=== PATIENT | male | born 1960 | race Caucasian/White ===

== ENCOUNTER → 2017-12-10 | Outpatient (CLI) | payer BC ==
[~2017-12-10] MED LIST: BUDE10.2 IH; RT-ALBUINH IH
--- NOTE | 2017-12-10 18:40 | Diagnostic Imaging Report ---
INDICATION: Shortness of breath. EXAMINATION: PA and lateral views of the chest were obtained at 3:21 p.m. FINDINGS: Heart is normal in size. Mediastinal silhouette is unremarkable. There is an ill-defined density in the left perihilar region which may represent infiltrate or nodule. Recommend chest CT for further characterization. The right lung is clear. There is no pneumothorax or pleural fluid. IMPRESSION: Indeterminate density in left perihilar region which may represent infiltrate or nodule. Chest CT recommended for further evaluation. There is no other abnormal finding. Dictated by: Dictated on workstation # [id number]
== END ==
LOC: RAD 14:40
PROVIDERS: ATTEND Nurse Practitioner Family
DX: J98.4 Other disorders of lung (principal); R06.02 Shortness of breath
CPT/HCPCS: 71046

== ENCOUNTER → 2017-12-15 | Outpatient (CLI) | payer BC ==
--- NOTE | 2017-12-15 12:52 | Diagnostic Imaging Report ---
INDICATION: Left lung density. TECHNIQUE: Serum blood glucose level at the time of injection was 113 mg/dL. Patient was administered 13.7 mCi F-18 FDG intravenously, administered to the right antecubital location, and PET imaging was performed from the top of the skull to mid thighs. Noncontrast CT was also performed for attenuation correction and anatomic correlation. COMPARISON: No prior PET study or CT study is available for comparison. Comparison is made with a chest radiograph from 12/10/2017. FINDINGS: There is physiologic activity throughout the brain. No abnormal hypermetabolism in the soft tissues of the neck is identified. Mediastinum and deya are unremarkable. There is a parenchymal opacity in the left upper lobe corresponding with the chest x-ray abnormality. This does have low-level metabolism with SUV max of approximately 3.4. It is somewhat linear in configuration and is most suggestive of an area of infiltrate. No other pulmonary parenchymal abnormalities are seen. There does appear to be a left pleural effusion. The abdomen demonstrates physiologic activity in the GI and tracts. No abnormal hypermetabolism is seen. IMPRESSION: Small left pleural effusion. There is an area of somewhat linear opacity in the left upper lobe corresponding with the chest radiographic abnormality. This does show some low-level metabolism and is likely on an infectious/inflammatory basis. However, followup conventional chest CT with contrast after course of therapy is recommended to confirm clearing. Dictated by: Dictated on workstation # [id number]
== END ==
LOC: RAD 10:09
PROVIDERS: ATTEND Nurse Practitioner Family
DX: J90 Pleural effusion, not elsewhere classified (principal); R91.1 Solitary pulmonary nodule

== ENCOUNTER 2017-12-16 11:30 | Outpatient (CLI) | payer BC ==
[~2017-12-16] VITALS: Ht 172.7 cm; Wt 90.7 kg
[2017-12-16] MEDS ORDERED: BUDE10.2 IH (11:47)
[2017-12-16] MEDS ORDERED: RT-ALBUINH IH (11:47)
== END 2017-12-16 11:51 | disposition home or self-care (01) ==
LOC: PREOP 11:30
PROVIDERS: ATTEND Internal Medicine Critical Care Medicine
DX: Z01.818 Encounter for other preprocedural examination (principal)

== ENCOUNTER 2017-12-17 09:42 | Day surgery (SDC) | payer BC ==
[~2017-12-17] VITALS: Ht 172.7 cm; Wt 90.7 kg
[2017-12-17] MEDS ORDERED: LIDOCAINE PF 1% 5 ML SYRINGE (ANLIKER/BAILEY ONLY) INJ ONE (09:43)
[2017-12-17 09:55] VITALS: BP 139/88
[2017-12-17] MEDS ORDERED: LACTATED RINGERS 1,000 ML IV PRN (10:00)
[2017-12-17] MEDS ORDERED: LACTATED RINGERS 1,000 ML IV ONE (10:02)
[2017-12-17] MEDS ORDERED: fentaNYL INJECTION 100 MCG/2 ML AMP ONE (12:12)
[2017-12-17] MEDS ORDERED: PROPOFOL INJECTION 50 ML IV ONE (12:12)
[2017-12-17] MEDS ORDERED: LIDOCAINE PF 2% 2 ML (XYLOCAINE) VIAL ONE (12:12)
[2017-12-17] MEDS ORDERED: MIDAZOLAM 2 MG/2 ML (VERSED) VIAL ONE (12:13)
[2017-12-17] MEDS ORDERED: ROCURONIUM 10 MG/ML 5 ML SYRINGE IV ONE (12:13)
[2017-12-17] MEDS ORDERED: proPOfol 200 MG/20 ML (DIPRIVAN) VIAL IV ONE (12:16)
[2017-12-17] MEDS ORDERED: GLYCOPYRROLATE 0.2 MG/ML (ROBINUL) 2 ML VIAL ONE (12:51)
[2017-12-17] MEDS ORDERED: NEOSTIGMINE 1 MG/ML 5 ML SYRINGE ONE (12:52)
[2017-12-17 14:10] VITALS: BP 137/74
--- NOTE | 2017-12-17 14:17 | Diagnostic Imaging Report ---
Clinical indication: Patient post bronchoscopy and EBUS. Exam: Portable chest x-ray upright view. Comparisons: Chest x-ray dated 12/10/2017. Findings: There is interval development of a small amount of amorphous increased density in the left perihilar region which is near the area of increased density on the prior x-ray. This may represent post procedure parenchymal hemorrhage. Superimposed other infiltrate and/or atelectasis may also be present. There is no pneumothorax. There is no pleural effusion. Pulmonary vasculature and cardiac silhouette are within normal limits. Bones show no significant interval abnormality. Impression: 1: There is interval development of a small amount of amorphous increased density in the left perihilar region which is in the region of the previously seen increased density. This may represent post procedure parenchymal hemorrhage. Atelectasis and/or other infiltrate may also be considered. 2: There is no pneumothorax or pleural effusion. Dictated by: Dictated on workstation # [id number]
--- NOTE | 2017-12-17 14:30 | Anesthesia-General Post-Op ---
General Patient Condition Mental Status/LOC: Same as Preop Cardiovascular: Satisfactory Nausea/Vomiting: Absent Respiratory: Satisfactory Pain: Controlled Complications: Absent Post Op Complications Complications None Follow Up Care/Instructions Patient Instructions None needed. Anesthesia/Patient Condition Patient Condition Patient is doing well, no complaints, stable vital signs, no apparent adverse anesthesia problems. No complications reported per nursing. MAIN ROSS CRNA Dec 17, 2017 14:30
[2017-12-17 14:32] VITALS: BP 130/79
--- NOTE | 2017-12-17 14:34 | Diagnostic Imaging Report ---
Fluoroscopy. Indication: Lung density. Fluoroscopic assistance was provided for Dr. Fish during his bronchoscopy procedure. 61 seconds of fluoroscopy time was utilized. Two spot films of the left thorax were received from the OR. Impression: Fluoroscopic assistance was provided for Dr. Fish. Dictated by: Dictated on workstation # [id number]
[2017-12-17 14:40] VITALS: BP 130/79
--- NOTE | 2017-12-17 15:44 | Pulmonary Procedures ---
Pulmonary Procedures Date of Procedure Date of Service: Dec 17, 2017 Bronch Bronchoscopy with fluoroscopy, MELL washing, BAL, and transbronchial brush. EBUS was used to access for enlarged mediastinal lymphnodes. Preop DX: lung mass PostOP DX: same no enlarged lymph nodes. Complications: None Pt was sedated per anesthesia. Bronchoscopy was advanced through the ET tube and an anatomical undertaken down to the segmental bronchi bilaterally. No endobronchial lesions noted. fluoroscopy was used to obtain MELL washing, BAL, and transbronchial brush. EBUS was then advanced through ET tube and the mediastinum was US. No enlarged lymph nodes were seen. No transbronchial needle aspirations done. Pt tolerated procedure well. No complications noted. ANDREWS HEMPHILL DO Dec 17, 2017 15:44
== END 2017-12-17 14:40 | disposition home or self-care (01) ==
LOC: ENDO 09:42
PROVIDERS: ATTEND Internal Medicine Critical Care Medicine
DX: R91.8 Other nonspecific abnormal finding of lung field (principal); J44.9 Chronic obstructive pulmonary disease, unspecified; J45.909 Unspecified asthma, uncomplicated; K21.9 Gastro-esophageal reflux disease without esophagitis; F17.210 Nicotine dependence, cigarettes, uncomplicated; Z79.899 Other long term (current) drug therapy
CPT/HCPCS: 71045; 87070; 87101; 87116; 87205

== ENCOUNTER → 2017-12-21 | Outpatient (CLI) | payer BC ==
[~2017-12-21] MED LIST changes: +RT-ALBUTEROL SULF 2.5 MG/3 ML PRE-MIX VIAL INH ONE; +RT-ALBUTEROL SULF 2.5 MG/3 ML PRE-MIX VIAL ONE
== END ==
LOC: RT 15:13
PROVIDERS: ATTEND Nurse Practitioner Family
DX: R06.02 Shortness of breath (principal); J44.9 Chronic obstructive pulmonary disease, unspecified
CPT/HCPCS: 94060; 94726; 94729

== ENCOUNTER → 2018-02-17 | Outpatient (CLI) | payer BC ==
[~2018-02-17] MED LIST changes: +RECEIVED CONTRAST (Hold Metformin) IV SCH; -RT-ALBUTEROL SULF 2.5 MG/3 ML PRE-MIX VIAL INH ONE; -RT-ALBUTEROL SULF 2.5 MG/3 ML PRE-MIX VIAL ONE
[2018-02-17 12:33] LABS: BUN/CREATININE RATIO 17; CREATININE SERUM 0.86 MG/DL (0.60-1.30); GFR ESTIMATED > 60
[2018-02-17] MEDS: IOHEXOL 350 MG/ML 100 ML (OMNIPAQUE 350) VIAL IV ONE (13:28)
[2018-02-17] MEDS: NS 250 ML (IVPB) BAG IV ONE (13:29)
--- NOTE | 2018-02-17 22:57 | Diagnostic Imaging Report ---
PROCEDURE: CT chest with contrast only. TECHNIQUE: Multiple contiguous axial images were obtained through the chest after administration of intravenous contrast. DATE: February 17, 2018. COMPARISON: Chest radiograph, December 17, 2017. PET CT, December 15, 2017. INDICATION: 58-year-old male, follow left lung consolidation. History of pulmonary nodule, COPD, and chronic bronchitis. PROCEDURE: Axial noncontrasted CT images of the chest. Noncontrasted limits the evaluation of the mediastinum and vascular structures. FINDINGS: There is a pleurally based right upper lobe pulmonary nodule on axial image 20 which measures 8 mm in size. This appears more focal compared to prior PET/CT of December 15, 2017. There are mild linear opacities in the left upper lobe likely reflecting mild scarring and/or atelectasis. The overall extent of opacification in the left upper lobe is significantly decreased since the December 15, 2017. CT. There is a semisolid 4 mm left upper lobe pulmonary nodule on axial image 22 which does not appear present on prior CT. There is no current pleural effusion. There is no pneumothorax. The central airways appear patent. The heart is not enlarged. There is no pericardial effusion. There is no identified central pulmonary embolus. There is no identified abnormally enlarged mediastinal, hilar or axillary lymph node which meets CT size criteria for adenopathy. The visualized portions of the upper abdomen are unremarkable in appearance. There is mild to moderate dilation of the esophagus without CT apparent wall thickening of the esophagus. There is no identified acute bony abnormality. IMPRESSION: 1. 8 mm pleurally based right upper lobe pulmonary nodule which appears more focal since on prior PET/CT of December 15, 2017. Newly identified 4 mm semisolid left upper lobe pulmonary nodule. Recommend followup CT chest in three months to assess for stability. 2. Minimal atelectasis or scarring in the left upper lobe with interval decrease in extent of alveolar consolidation seen on prior PET/CT at this location. 3. No current pleural effusion. 4. Mild to moderate dilation of the esophagus without CT apparent wall thickening of the esophagus. Dictated by: Dictated on workstation # [id number]
== END ==
LOC: RAD 11:56
PROVIDERS: ATTEND Nurse Practitioner Family
DX: J44.9 Chronic obstructive pulmonary disease, unspecified (principal); R91.8 Other nonspecific abnormal finding of lung field; K22.8 Other specified diseases of esophagus; J18.1 Lobar pneumonia, unspecified organism; Z72.0 Tobacco use
CPT/HCPCS: 36415; 71260; 82565; 84520

== ENCOUNTER → 2018-05-03 | Outpatient (CLI) | payer BC ==
[~2018-05-03] MED LIST changes: -RECEIVED CONTRAST (Hold Metformin) IV SCH
--- NOTE | 2018-05-03 13:47 | Diagnostic Imaging Report ---
PROCEDURE: CT chest without contrast. TECHNIQUE: Multiple contiguous axial images were obtained through the chest without the use of intravenous contrast. INDICATION: Lung nodules. Patient also complains of shortness of air and is a tobacco user. Correlation is made with prior CT chest from 02/17/2018. No axillary lymphadenopathy is seen. No mediastinal or hilar lymphadenopathy is detected. No pericardial or pleural fluid is identified. A slightly irregular density noted adjacent to the major fissure the right upper lobe posteriorly is again noted measuring 7 mm compared with 8 mm on prior. There is some minimal scarring or atelectasis left upper lobe. Previously noted semisolid nodule left upper lobe is no longer appreciated. Previously noted esophageal dilatation is similar to prior exam. Upper abdomen does show a tiny nonobstructing calculus in the upper pole of the left kidney. IMPRESSION: 1. Stable nodule right upper lobe adjacent to major fissure. Previously noted semisolid nodule in left upper lobe is no longer appreciated. No new abnormality is detected. Dictated by: Dictated on workstation # [id number]
== END ==
LOC: RAD 12:55
PROVIDERS: ATTEND Nurse Practitioner Family
DX: J44.9 Chronic obstructive pulmonary disease, unspecified (principal); R91.8 Other nonspecific abnormal finding of lung field; G47.50 Parasomnia, unspecified; Z72.0 Tobacco use
CPT/HCPCS: 71250

== ENCOUNTER 2018-12-08 14:12 | Emergency (ER) | payer BC ==
[~2018-12-08] VITALS: Ht 172.7 cm; Wt 92.5 kg
[2018-12-08] MEDS ORDERED: KETOROLAC 60 MG/2 ML VIAL IM ONE (15:15)
--- NOTE | 2018-12-08 15:17 | ED General ---
General Chief Complaint: Abdominal/GI Problems Stated Complaint: LT ABD PAIN History of Present Illness Date Seen by Provider: Dec 08, 2018 Time Seen by Provider: 15:00 Initial Comments The patient is a very pleasant 58-year-old male presents for evaluation of left lower lateral rib pain. He states that he is currently remodeling a bathroom and has been doing a lot of physical labor. He does not remember a specific injury to his chest wall. He does report some shortness of breath and some exquisite pain when palpating his left lower ribs laterally. He does have a history of COPD. He is alert and oriented 4, calm, and appears to be in no distress this time. He states that he has excruciating pain when he coughs and that it is painful to touch, but denies any pain when he does a sit up type exercise. He denies fevers or chills, chest pain, nausea or vomiting, diarrhea, back or flank pain, or syncope. Timing/Duration: 1-2 Days Severity: Moderate Modifying Factors: improves with Other (coughing and palpation make it worse) Associated Systoms: Denies Symptoms, Shortness of Air Allergies and Home Medications Allergies Coded Allergies: codeine (Verified Allergy, Unknown, NAUSEA, 12/16/17) oxycodone (Verified Allergy, Unknown, NAUSEA, 12/16/17) Home Medications Albuterol Sulfate 1 Puff Puff, 2 PUFF IH QID PRN for SHORTNESS OF BREATH, (Reported) 1 PUFF = 90 MCG Budesonide/Formoterol Fumarate 10.2 Gm Hfa.aer.ad, 2 PUFF IH BID, (Reported) Patient Home Medication List Home Medication List Reviewed: Yes Review of Systems Review of Systems Constitutional: no symptoms reported EENTM: no symptoms reported Respiratory: short of breath, other (pain with coughing) Gastrointestinal: no symptoms reported Genitourinary: no symptoms reported Musculoskeletal: no symptoms reported Skin: no symptoms reported Psychiatric/Neurological: No Symptoms Reported Hematologic/Lymphatic: No Symptoms Reported All Other Systems Reviewed Negative Unless Noted: Yes Past Kjyjvvh-Jwluby-Scfakl Hx Past Med/Social Hx: Reviewed Nursing Past Med/Soc Hx Patient Social History Type Used: Cigarettes Recent Hopitalizations: No Seasonal Allergies Seasonal Allergies: No Past Medical History Asthma, COPD Physical Exam Vital Signs Capillary Refill : Height, Weight, BMI Height: 5'8.00" Weight: 200lbs. 0.0oz. [id number]; 30.4 BMI Method: General Appearance: No Apparent Distress, WD/WN HEENT: PERRL/EOMI, TMs Normal, Normal ENT Inspection, Pharynx Normal Neck: Full Range of Motion, Non Tender Respiratory: Chest Non Tender, Lungs Clear, Normal Breath Sounds, No Accessory Muscle Use, No Respiratory Distress, Other (point tenderness over left lower anteriolateral ribs) Cardiovascular: Regular Rate, Rhythm, No Edema, No JVD Gastrointestinal: Normal Bowel Sounds Back: Normal Inspection, No CVA Tenderness, No Vertebral Tenderness Extremity: Normal Capillary Refill, Normal Range of Motion, No Calf Tenderness, No Pedal Edema Neurologic/Psychiatric: Alert, Oriented x3, No Motor/Sensory Deficits, Normal Mood/Affect Skin: Normal Color, Warm/Dry Progress/Results/Core Measures Suspected Sepsis SIRS Temperature: Pulse: Respiratory Rate: Blood Pressure / Mean: Results/Orders My Orders Orders - ALCIDES WINTERS DO Ribs 2-3 View Left (12/08/18 15:08) Ketorolac Injection (Toradol Injection) (12/08/18 15:15) Vital Signs/I&O Capillary Refill : Progress Note : Progress Note @1544 - Pt updated on imaging results which are unremarkable. The patient is clinical evidence to suggest a nondisplaced rib fracture or less likely a chest wall strain. He'll go home with a prescription for [place]. Advised the patient to follow-up with his PCP in the next 1-2 days and to return to the emergency Department immediately for any new or worsening symptoms. The patient expresses verbal understanding and agreement with the plan and is stable for discharge home. Diagnostic Imaging Diagonstic Imaging: Xray [facility] [place] [place] NAME: KATIE DONATO [facility] REC#: [id number] PT STATUS: REG ER : 1960 PHYSICIAN: ALCIDES WINTERS DO ADMIT DATE: 12/08/18/ER FS Draft Date of Exam:12/08/18 RIBS 2-3 VIEW LEFT CLINICAL INDICATION: Patient with left middle rib pain, cough. EXAM: X-ray of the left ribs, 4 views. COMPARISON: Portable chest x-ray dated 12/17/2017. FINDINGS AND IMPRESSION: 1. The left ribs show no acute fracture or dislocation. There is no significant bone or joint abnormality. 2. There are degenerative spurs involving the thoracic spine. 3. The visualized portions of the chest are unremarkable. Dictated on workstation # [id number] Dict: 12/08/18 1530 Trans: 12/08/18 1538 [id number] Interpreted by: BASILIO GRANT MD Electronically signed by: Departure Impression Primary Impression: Left rib fracture Disposition: HOME, SELF-CARE Condition: Stable Departure-Patient Inst. Decision time for Depature: 15:46 Referrals: JACQUE DICKINSON DO (PCP/Family) Primary Care Physician Patient Instructions: Rib Fractures in Adults Add. Discharge Instructions: Take the prescribed pain medication as directed, as needed. Follow-up with your doctor in the next 1-2 days. Return to the Emergency Department immediately for new or worsening symptoms. Scripts Hydrocodone/Acetaminophen ([place] 7.5-325 Tablet) 1 Each Tablet 1 TAB PO Q4H for PAIN-MODERATE MDD 6 TABS for 5 Days, #15 TAB Prov: ALCIDES WINTERS DO 12/08/18 Work/School Note: Work Release Form Date Seen in the Emergency Department: Dec 08, 2018 Return to Work: Dec 10, 2018 Restrictions: Follow Up With [facility] ALCIDES WINTERS DO Dec 08, 2018 15:17
--- NOTE | 2018-12-08 15:38 | Diagnostic Imaging Report ---
CLINICAL INDICATION: Patient with left middle rib pain, cough. EXAM: X-ray of the left ribs, 4 views. COMPARISON: Portable chest x-ray dated 12/17/2017. FINDINGS AND IMPRESSION: 1. The left ribs show no acute fracture or dislocation. There is no significant bone or joint abnormality. 2. There are degenerative spurs involving the thoracic spine. 3. The visualized portions of the chest are unremarkable. Dictated by: Dictated on workstation # [id number]
[2018-12-08] MEDS ORDERED: HYDR-4227 PO (15:54)
[2018-12-08 16:06] VITALS: BP 155/83
== END 2018-12-08 16:06 | disposition home or self-care (01) ==
LOC: EDUNIT# 14:12 → ER FS 14:13
DX: S22.32XA Fracture of one rib, left side, initial encounter for closed fracture (principal); J44.9 Chronic obstructive pulmonary disease, unspecified; Z88.5 Allergy status to narcotic agent; X50.1XXA Overexertion from prolonged static or awkward postures, initial encounter
CPT/HCPCS: 71100; 96372

== ENCOUNTER → 2019-06-16 | Outpatient (CLI) | payer BC, OTHER ==
[~2019-06-16] MED LIST changes: +HYDR-4227 PO
--- NOTE | 2019-06-16 14:54 | Diagnostic Imaging Report ---
PROCEDURE: MR imaging of the brain without contrast. TECHNIQUE: Multiplanar, multisequence MR imaging of the brain was performed without contrast. INDICATION: Dizziness. COMPARISON: PET/CT on 12/15/2017. FINDINGS: Numerous dilated and tortuous veins are visualized in the left lateral frontal lobe extending to the margin of the body of the left lateral ventricle. No evidence of acute hemorrhage. No acute ischemia. The ventricles, cortical sulci, and basilar cisterns are symmetric and unremarkable. The sellar and suprasellar regions have a normal appearance. The brainstem and posterior fossa are unremarkable. The paranasal sinuses and mastoid air cells demonstrate normal signal characteristics. The globes and orbits are symmetric and unremarkable. The scalp and calvarium have a normal appearance. IMPRESSION: 1. 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 Recommend further evaluation with CTA of the head and catheter cerebral angiogram. 2. No acute ischemia or hemorrhage. Report given to nurse (Paola) & faxed at 2:54 p.m. 06/16/2019/cb Dictated by: Dictated on workstation # [id number]
== END ==
LOC: RAD 14:06
PROVIDERS: ATTEND Family Medicine
DX: R42 Dizziness and giddiness (principal); M54.5 Low back pain; F17.299 Nicotine dependence, other tobacco product, with unspecified nicotine-induced disorders; J98.4 Other disorders of lung; E66.3 Overweight; F51.01 Primary insomnia
CPT/HCPCS: 70551

== ENCOUNTER → 2019-08-23 | Outpatient (CLI) | payer OTHER | LOC: LABNPT 09:02 | DX: Z11.59 Encounter for screening for other viral diseases (principal) | CPT/HCPCS: 87635 ==

== ENCOUNTER → 2020-03-14 | Outpatient (CLI) | payer OTHER ==
[2020-03-14 15:30] LABS: BASOPHILS # (AUTO) 0.1 10^3/uL (0.0-0.1); BASOPHILS % (AUTO) 1 % (0-10); EOSINOPHILS # (AUTO) 0.2 10^3/uL (0.0-0.3); EOSINOPHILS % (AUTO) 3 % (0-10); HEMATOCRIT 44 % (40-54); HEMOGLOBIN 13.5 g/dL (13.3-17.7); LYMPHOCYTES # (AUTO) 1.8 10^3/uL (1.0-4.0); LYMPHOCYTES % (AUTO) 25 % (12-44); MEAN CORPUSCULAR HEMOGLOBIN 29 pg (25-34); MEAN CORPUSCULAR HGB CONC 31 g/dL (32-36); MEAN CORPUSCULAR VOLUME 95 fL (80-99); MEAN PLATELET VOLUME 9.6 fL (9.0-12.2); MONOCYTES # (AUTO) 0.7 10^3/uL (0.0-1.0); MONOCYTES % (AUTO) 10 % (0-12); NEUTROPHILS # (AUTO) 4.3 10^3/uL (1.8-7.8); NEUTROPHILS % (AUTO) 60 % (42-75); PLATELET COUNT 240 10^3/uL (130-400); WHITE BLOOD COUNT 7.1 10^3/uL (4.3-11.0)
[2020-03-14 15:37] LABS: CHLORIDE 104 MMOL/L (98-107); POTASSIUM 4.2 MMOL/L (3.6-5.0); SODIUM 139 MMOL/L (135-145)
[2020-03-14 15:38] LABS: CALCIUM 8.6 MG/DL (8.5-10.1)
[2020-03-14 15:39] LABS: GLUCOSE 88 MG/DL (70-105)
[2020-03-14 15:40] LABS: TOTAL PROTEIN 6.6 GM/DL (6.4-8.2)
[2020-03-14 15:41] LABS: BILIRUBIN,TOTAL 0.4 MG/DL (0.1-1.0); CARBON DIOXIDE 28 MMOL/L (21-32)
[2020-03-14 15:43] LABS: ALKALINE PHOSPHATASE 87 U/L (40-136); CREATININE SERUM 1.11 MG/DL (0.60-1.30); GFR ESTIMATED > 60
[2020-03-14 15:44] LABS: BUN/CREATININE RATIO 16
[2020-03-14 15:46] LABS: ALANINE AMINOTRANSFERASE 14 U/L (0-55)
[2020-03-14 15:51] LABS: CREATINE KINASE MB 1.5 NG/ML (<6.6)
== END ==
LOC: LABNPT 15:19
PROVIDERS: ATTEND Family Medicine
DX: R07.9 Chest pain, unspecified (principal)
CPT/HCPCS: 80053; 82553; 84484; 85025

== ENCOUNTER → 2020-04-17 | Outpatient (CLI) | payer BC, OTHER ==
[~2020-04-17] VITALS: Ht 172 cm; Wt 89.0 kg
[~2020-04-17] MED LIST changes: +REGADENOSON 0.4 MG/5 ML SYR (LEXISCAN) IV ONE
[2020-04-17] MEDS: CATHETER FLUSH 10 ML SYR IV PRN ×2 (11:36→13:01)
[2020-04-17 12:55] VITALS: BP 144/78
== END ==
LOC: CARD 10:47
PROVIDERS: ATTEND Nurse Practitioner Family
DX: I34.0 Nonrheumatic mitral (valve) insufficiency (principal)
CPT/HCPCS: 78452; 93017; 93306; A9502

== ENCOUNTER → 2020-04-30 | Outpatient (CLI) | payer BC ==
[~2020-04-30] MED LIST changes: -REGADENOSON 0.4 MG/5 ML SYR (LEXISCAN) IV ONE
--- NOTE | 2020-04-30 12:40 | Diagnostic Imaging Report ---
INDICATION: Chest pain. COMPARISON: CT dated 05/03/2018 FINDINGS: Multiple frontal and lateral radiograph views of the chest were obtained. Cardiac silhouette and pulmonary vasculature are within normal limits. Evaluation of lung nunez suggest 6 mm micronodular opacity within the lateral right lung base. Otherwise, lungs are clear. There is no large effusion or pneumothorax. Osseous structures show no gross acute abnormalities. IMPRESSION: 1. No evidence of failure or focal infiltrate. 2. 6 mm micronodular opacity within the lateral right lung base. Further evaluation with dedicated CT of the chest is recommended. Dictated by: Dictated on workstation # [id number]
== END ==
LOC: RAD FS 11:51
PROVIDERS: ATTEND Family Medicine
DX: J98.4 Other disorders of lung (principal); R91.8 Other nonspecific abnormal finding of lung field; Q28.2 Arteriovenous malformation of cerebral vessels; M54.5 Low back pain; F51.01 Primary insomnia; F17.299 Nicotine dependence, other tobacco product, with unspecified nicotine-induced disorders
CPT/HCPCS: 71047

== ENCOUNTER → 2020-06-06 | Outpatient (CLI) | payer BC ==
--- NOTE | 2020-06-06 11:38 | Diagnostic Imaging Report ---
INDICATION: CONTUSION OF RIGHT FRONT WALL OF THORAX AND RUQ OF ABDOMEN,. TECHNIQUE: Two view chest 9:55 AM CORRELATION STUDY: 04/30/2020 FINDINGS: The heart size, mediastinal configuration and pulmonary vasculature are within normal limits. There is presence of a pleural effusion or pleural thickening at the right lung base. Fluid collection appearing more pronounced posteriorly. Some of this may be partially loculated. Mild right basilar lung volume loss. No appreciable pneumothorax. Left lung clear. Visualized osseous structures are unremarkable. IMPRESSION: 1. Small right pleural effusion versus pleural thickening which may be somewhat loculated. Slightly more prominent posteriorly. Etiology significance indeterminate. If further assessment desired, CT imaging chest would be recommended. Dictated by: Dictated on workstation # [id number]
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
== END ==
LOC: RAD FS 09:45
PROVIDERS: ATTEND Family Medicine
DX: S20.211A Contusion of right front wall of thorax, initial encounter (principal); W28.XXXA Contact with powered lawn mower, initial encounter
CPT/HCPCS: 71046; 71100; 74019

== ENCOUNTER → 2020-07-06 | Outpatient (CLI) | payer BC ==
--- NOTE | 2020-07-06 17:11 | Diagnostic Imaging Report ---
EXAMINATION: CT Chest without contrast. TECHNIQUE: Multiple contiguous axial images were obtained through the chest without the use of intravenous contrast. All CT scans use one or more of the following dose optimizing techniques: automated exposure control, MA and/or KvP adjustment based on a patient size and exam type, or iterative reconstruction. HISTORY: Wheezing. Left-sided chest pain. Received first COVID shot one week ago. Shortness of breath. History of smoking. COMPARISON: CT chest on 05/03/2018. FINDINGS: The heart size is within normal limits. No pericardial effusion is present. Mildly prominent mediastinal and hilar lymph nodes are visualized, the largest in the AP window measuring 0.9 cm in short axis. Ingested contents are seen throughout the esophagus. A spiculated soft tissue mass is seen in the lingula measuring 4.6 x 3.9 cm and 4.1 cm craniocaudal. There is a small amount of surrounding hazy opacities. This is new since the prior exam from 2019. Stable nodule in the right upper lobe adjacent to the fissure measuring 0.7 cm. No central endobronchial obstructing lesions are identified. There is no pleural effusion or pneumothorax. The osseous structures demonstrate no acute abnormalities. Limited views of the upper abdominal structures demonstrate no acute abnormalities. Both adrenal glands are unremarkable. IMPRESSION: 1. Interval development of a soft tissue mass in the lingula. Given the patient's history of smoking, this is concerning for primary lung malignancy. Metastatic disease can also have this appearance. Recommend further evaluation with percutaneous biopsy. 2. Mildly prominent mediastinal lymph nodes. These are nonspecific, although given the lung mass, there is concern for metastatic disease. Recommend further characterization with PET/CT. 3. Ingested contents throughout the esophagus, which may represent [id number] gastroesophageal reflux. Recommend correlation with patient history. 4. Stable nodule in the right upper lobe adjacent to the fissure measuring 0.7 cm. Dictated by: Dictated on workstation # [id number]
== END ==
LOC: RAD FS 15:19
PROVIDERS: ATTEND Family Medicine
DX: I89.0 Lymphedema, not elsewhere classified (principal); K21.9 Gastro-esophageal reflux disease without esophagitis; R91.8 Other nonspecific abnormal finding of lung field; R91.1 Solitary pulmonary nodule; Z87.891 Personal history of nicotine dependence
CPT/HCPCS: 71250

== ENCOUNTER 2020-07-18 08:02 | Outpatient (CLI) | payer BC ==
[~2020-07-18] VITALS: Ht 172.7 cm; Wt 89.0 kg
[2020-07-18] VITALS (13 sets, daily range): BP systolic 100–138; BP diastolic 57–75
[2020-07-18] MEDS ORDERED: NS IV 1000 ML 1,000 ML IV STA (08:46)
[2020-07-18 08:53] LABS: HEMOGLOBIN 13.2 g/dL (13.3-17.7); MEAN PLATELET VOLUME 9.7 fL (9.0-12.2); WHITE BLOOD COUNT 8.4 10^3/uL (4.3-11.0)
[2020-07-18] MEDS ORDERED: LIDOCAINE 1% INJ 20 ML 20 ML VIAL INJ ONE (09:00)
[2020-07-18] MEDS ORDERED: fentaNYL INJ 100 MCG/2 ML AMP IVP ONE (09:00)
[2020-07-18] MEDS ORDERED: MIDAZOLAM 2 MG/2 ML (VERSED) VIAL IVP ONE (09:00)
[2020-07-18 09:13] LABS: PROTHROMBIN TIME PATIENT 13.2 SEC (12.2-14.7)
[2020-07-18] MEDS ORDERED: MIDAZOLAM 2 MG/2 ML (VERSED) VIAL ONE (09:34)
[2020-07-18] MEDS ORDERED: LIDOCAINE 1% INJ 20 ML 20 ML VIAL ONE (09:34)
[2020-07-18] MEDS ORDERED: fentaNYL INJ 100 MCG/2 ML AMP ONE (09:34)
[2020-07-18] MEDS ORDERED: NS IV 1000 ML 1,000 ML ONE (09:34)
[2020-07-18] MEDS ORDERED: ACHD5005 PO (09:38)
[2020-07-18] MEDS ORDERED: BUDE10.7 IH (09:38)
[2020-07-18] MEDS ORDERED: ZOLP10TA PO (09:38)
[2020-07-18] MEDS ORDERED: HYDROcodone/APAP 5 MG/325 MG (LORTAB) TAB PO PRN (11:00)
--- NOTE | 2020-07-18 11:07 | Pre-Op Note & Conscious Sedat ---
Pre-Operative Progress Note H&P Reviewed The H&P was reviewed, patient examined and no changes noted. Date H&P Reviewed: Jul 18, 2020 Time H&P Reviewed: 09:00 Pre-Op Diagnosis: lung mass Conscious Sedation Pre-Proced Time 09:00 ASA Score 2 For ASA 3 and 4: Consider anesthesia and medical clearance. Also, for patients with a history of failed moderate sedation consider anesthesia. Airway Lungs Heart ASA score ASA 1: a normal healthy patient ASA 2: a patient with a mild systemic disease (mid diabetes, controlled hypertension, obesity ASA 3: a patient with a severe systemic disease that limits activity (angina, COPD, prior Myocardial infarction) ASA 4: a patient with an incapacitating disease that is a constant threat to life (CHF, renal failure) ASA 5: a moribund patient not expected to survive 24 hrs. (ruptured aneurysm) ASA 6: a declared brain- patient whose organs are being harvested. For emergent operations, add the letter E after the classification Mallampati Classification Grade 2 Sedation Plan Analgesia, Amnesia, Plan communicated to team members, Discussed options with patient/fam, Discussed risks with patient/fam The patient is an appropriate candidate to undergo the planned procedure, sedation, and anesthesia. The patient immediately re-assessed prior to indication. KRISH MENDOSA MD Jul 18, 2020 11:07
--- NOTE | 2020-07-18 11:15 | Diagnostic Imaging Report ---
INDICATION: Left lung mass. Patient presents for CT-guided biopsy. TECHNIQUE: All CT scans use one or more of the following dose optimizing techniques: automated exposure control, MA and/or KvP adjustment based on patient size and exam type or iterative reconstruction. Patient was brought to the CT suite and placed on table in the supine position. Axial imaging through the chest was performed to evaluate appropriate entry site. Procedure was performed utilizing conscious sedation with radiology nursing and constipation monitoring. Patient was given a total of 100 mg of fentanyl intravenously and 1 mg of Versed intravenously. Total procedure time was 9 minutes. Lower left chest was prepped and draped in usual sterile fashion. Small amount of 1% lidocaine was utilized for local anesthesia. 20-gauge coaxial Temno needle was advanced placed within the lesion in the left lung base. Total of 4 core biopsies were obtained. A blood patch was injected during needle removal. Follow-up imaging shows no complicating features. No pneumothorax is identified. IMPRESSION: Successful CT-guided left lung biopsy, utilizing conscious sedation. No complicating features are seen. Patient will obtain a chest x-ray in 2 hours to evaluate for pneumothorax. Pathology results are currently pending. Dictated by: Dictated on workstation # [id number]
--- NOTE | 2020-07-18 13:24 | Diagnostic Imaging Report ---
INDICATION: Status post left lung biopsy. Study is performed to evaluate for pneumothorax. TIME OF EXAM: 12:21 p.m. COMPARISON: Correlation is made with prior chest from 06/06/2020. FINDINGS: The heart size is stable. There is no evidence of pneumothorax, status post left lung biopsy. There is no effusion. The pulmonary vascularity is normal. IMPRESSION: No evidence of pneumothorax, status post left lung biopsy. Dictated by: Dictated on workstation # [id number]
== END 2020-07-18 13:30 | disposition home or self-care (01) ==
LOC: SDC 08:02
PROVIDERS: ATTEND Family Medicine
DX: J98.4 Other disorders of lung (principal); Q28.2 Arteriovenous malformation of cerebral vessels; F32.0 Major depressive disorder, single episode, mild; F51.01 Primary insomnia; M54.5 Low back pain; R91.8 Other nonspecific abnormal finding of lung field; F17.299 Nicotine dependence, other tobacco product, with unspecified nicotine-induced disorders; Z86.16 Personal history of COVID-19
CPT/HCPCS: 36415; 71045; 77012; 85027; 85610; 85730; 99156

== ENCOUNTER → 2020-09-21 | Outpatient (CLI) | payer BC ==
[~2020-09-21] MED LIST changes: +ACHD5005 PO; +BUDE10.7 IH; +CATHETER FLUSH 10 ML SYR IV PRN; +HOLD METFORMIN - RECEIVED CONTRAST 20 ML VIAL IV SCH; +IOHEXOL 350 MG/ML 100 ML (OMNIPAQUE 350) VIAL IV ONE; +NS 100 ML (IVPB) BAG IV ONE; +ZOLP10TA PO
--- NOTE | 2020-09-21 11:50 | Diagnostic Imaging Report ---
EXAMINATION: CT chest with intravenous contrast. TECHNIQUE: Multiple contiguous axial images were obtained through the chest after the uneventful administration of intravenous contrast. All CT scans use one or more of the following dose optimizing techniques: automated exposure control, MA and/or KvP adjustment based on patient size and exam type or iterative reconstruction. HISTORY: Follow-up lung nodule. COMPARISON: 07/06/2020. FINDINGS: The heart size is within normal limits. No pericardial effusion is present. The thoracic aorta has a normal appearance without evidence of aneurysm or dissection. Stable mildly prominent mediastinal lymph node. No new lymphadenopathy in the chest. The esophagus is somewhat patulous with fluid seen in the upper one-third of the esophagus. There has been marked improvement in the previously visualized soft tissue mass within the lingula. Residual soft tissue nodule now remains measuring 0.7 cm. Adjacent subsegmental atelectasis is present. Stable 0.7 cm nodule in the right upper lobe. No new pulmonary nodules are seen. No central endobronchial obstructing lesions are identified. There is no pleural effusion or pneumothorax. The osseous structures demonstrate no acute abnormalities. Limited views of the upper abdominal structures demonstrate no acute abnormalities. Both adrenal glands are unremarkable. IMPRESSION: 1. Interval marked improvement in the soft tissue mass within the lingula, with a 0.7 cm nodule now remaining. Adjacent atelectasis is also present within the lingula. Additional 0.7 cm nodule in the right upper lobe is stable. Recommend continued follow-up in six months with chest CT to ensure stability. 2. Redemonstration of findings likely representing gastroesophageal reflux. 3. Stable mildly prominent mediastinal lymph node. No new lymphadenopathy is seen in the chest. Dictated by: Dictated on workstation # [id number]
== END ==
LOC: RAD FS 10:27
PROVIDERS: ATTEND Internal Medicine Hematology & Oncology
DX: R91.1 Solitary pulmonary nodule (principal)
CPT/HCPCS: 71260

== ENCOUNTER 2020-10-11 13:04 | Outpatient (RCR) | payer BC ==
[2020-08-24 08:50] LABS: BASOPHILS # (AUTO) 0.1 10^3/uL (0.0-0.1); BASOPHILS % (AUTO) 1 % (0-10); EOSINOPHILS # (AUTO) 0.2 10^3/uL (0.0-0.3); EOSINOPHILS % (AUTO) 2 % (0-10); HEMATOCRIT 46 % (40-54); HEMOGLOBIN 14.3 g/dL (13.3-17.7); LYMPHOCYTES # (AUTO) 1.3 10^3/uL (1.0-4.0); LYMPHOCYTES % (AUTO) 16 % (12-44); MEAN CORPUSCULAR HEMOGLOBIN 28 pg (25-34); MEAN CORPUSCULAR HGB CONC 31 g/dL (32-36); MEAN CORPUSCULAR VOLUME 91 fL (80-99); MEAN PLATELET VOLUME 9.9 fL (9.0-12.2); MONOCYTES # (AUTO) 0.7 10^3/uL (0.0-1.0); MONOCYTES % (AUTO) 8 % (0-12); NEUTROPHILS # (AUTO) 5.7 10^3/uL (1.8-7.8); NEUTROPHILS % (AUTO) 72 % (42-75); PLATELET COUNT 165 10^3/uL (130-400); WHITE BLOOD COUNT 7.8 10^3/uL (4.3-11.0)
[2020-08-24 09:10] LABS: ALANINE AMINOTRANSFERASE 11 U/L (0-55); ALBUMIN 3.9 GM/DL (3.2-4.5); ALKALINE PHOSPHATASE 90 U/L (40-136); BILIRUBIN,TOTAL 0.4 MG/DL (0.1-1.0); BUN/CREATININE RATIO 10; CALCIUM 9.1 MG/DL (8.5-10.1); CARBON DIOXIDE 27 MMOL/L (21-32); CHLORIDE 108 MMOL/L (98-107); CREATININE SERUM 0.99 MG/DL (0.60-1.30); GFR ESTIMATED > 60; GLUCOSE 82 MG/DL (70-105); POTASSIUM 4.3 MMOL/L (3.6-5.0); SODIUM 142 MMOL/L (135-145); TOTAL PROTEIN 6.7 GM/DL (6.4-8.2)
[~2020-10-11 13:04] MED LIST changes: -CATHETER FLUSH 10 ML SYR IV PRN; -HOLD METFORMIN - RECEIVED CONTRAST 20 ML VIAL IV SCH; -IOHEXOL 350 MG/ML 100 ML (OMNIPAQUE 350) VIAL IV ONE; -NS 100 ML (IVPB) BAG IV ONE
== END 2020-11-22 | disposition home or self-care (01) ==
LOC: ONC 13:04
PROVIDERS: ATTEND Internal Medicine Hematology & Oncology
DX: J44.9 Chronic obstructive pulmonary disease, unspecified (principal); J98.4 Other disorders of lung; R91.1 Solitary pulmonary nodule; F17.210 Nicotine dependence, cigarettes, uncomplicated; Z79.899 Other long term (current) drug therapy
CPT/HCPCS: 80053; 83615; 85025; G0463; 99213; 99214

== ENCOUNTER → 2021-01-10 | Outpatient (CLI) | payer BC ==
[~2021-01-10] MED LIST changes: +CATHETER FLUSH 10 ML SYR IV PRN; +HOLD METFORMIN - RECEIVED CONTRAST 20 ML VIAL IV SCH; +IOHEXOL 350 MG/ML 100 ML (OMNIPAQUE 350) VIAL IV ONE; +NS 100 ML (IVPB) BAG IV ONE
--- NOTE | 2021-01-10 14:29 | Diagnostic Imaging Report ---
PROCEDURE: US carotid duplex, bilateral. TECHNIQUE: Multiple real-time grayscale images were obtained over the carotid arteries in various projections, bilaterally. Additional spectral analysis and color Doppler duplex images were also obtained. INDICATION: Dizziness. Slurred speech. History of smoking COMPARISON: None FINDINGS: Right carotid arterial circulation: Right common carotid artery is normal in course and caliber. Peak systolic velocities are slightly elevated within the mid ICA. Grayscale and color flow images however show no focal significant stenosis. By NASCET criteria, there is no focal significant stenosis. No large eccentric plaque is seen. Ratios are within normal limits. Left carotid arterial circulation: Left common carotid artery is normal in course and caliber. Left internal carotid artery is very tortuous, but grayscale and color flow images show no large plaque formations. Peak systolic velocities are elevated within the mid and distal ICA, but ratios are within normal limits. Bilateral vertebral arteries show normal antegrade flow. IMPRESSION: 1. Peak systolic velocities within the internal carotid arteries are slightly elevated. This may be secondary to tortuosity of the vessels, as no significant atherosclerotic disease is identified on either side. Otherwise, unremarkable carotid Doppler evaluation. Parameters based on the consensus panel Shetty-Scale and Doppler ultrasound criteria published January 2003, Radiology, Volume 229. DOPPLER (peak systolic velocity M/S Right Left CCA 1.30 1.18 ICA Proximal 1.02 .73 ICA Mid 1.38 1.69 ICA Distal 1.07 1.79 RATIO 1.06 1.38 ECA 1.40 1.23 VERT .66 .57 Dictated by: Dictated on workstation # [id number]
--- NOTE | 2021-01-10 15:25 | Diagnostic Imaging Report ---
CLINICAL INDICATION: Patient with vertigo and dizziness. Patient has history of malformation of cerebral vessels. No history of cancer. EXAM: Axial CT scan of the brain without and with 75 mL of Omnipaque 350 IV contrast with coronal and sagittal reformatted images. Auto Exposure Controls were utilized during the CT exam to meet ALARA standards for radiation dose reduction. COMPARISON: MRI of the brain without contrast dated 06/16/2019. FINDINGS: There is no significant change in appearance and configuration of the moderate-sized arteriovenous malformation in the lateral left frontal lobe. There are multiple tortuous and prominent arterial feeders and draining veins. There is no parenchymal edema seen in the region. There is no intracranial hemorrhage. The remainder of the brain parenchyma is unremarkable. There is no hydrocephalus. Basal cisterns are unremarkable. The extracranial soft tissue, skull, and orbits are unremarkable. There is moderate mucosal thickening involving the ethmoid sinus. Mastoid air cells are clear. IMPRESSION: 1: Stable appearance of the brain parenchyma with no evidence of acute intracranial process. There is no intracranial hemorrhage or acute cerebral infarct. There is no cerebral edema. 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 Dictated by: Dictated on workstation # [id number]
--- NOTE | 2021-01-10 18:06 | Diagnostic Imaging Report ---
PROCEDURE: CT chest with and without contrast. TECHNIQUE: Multiple contiguous axial images were obtained through the chest before and after administration of intravenous contrast. Auto Exposure Controls were utilized during the CT exam to meet ALARA standards for radiation dose reduction. INDICATION: Lung nodule for follow-up. Compared with chest CT 09/21/2020. FINDINGS: Juxta fissural atelectasis in the far anteroinferior aspect of the left lower lobe has nearly completely resolved. No residual soft tissue density nodule or mass. A faint sub-solid opacity in the right upper lobe measuring 7 mm shows continued stability and is believed scar. No findings suggestive of neoplasm. No evidence of pneumonia. No thoracic lymphadenopathy. No effusion or pneumothorax. No adverse development. The aorta is patent and nonaneurysmal. The upper abdomen unremarkable. IMPRESSION: Near complete resolution of some atelectatic changes in the left lung base. No evidence of residual nodule at that site. An area of scarring in the right upper lobe juxta fissural chronic and benign. No evidence for neoplasm. No acute finding. No adverse development. No suspicious lesion. No further workup felt needed. Dictated on workstation # [id number]
== END ==
LOC: RAD FS 12:54
PROVIDERS: ATTEND Family Medicine
DX: R91.8 Other nonspecific abnormal finding of lung field (principal); R42 Dizziness and giddiness; R47.81 Slurred speech; Z87.891 Personal history of nicotine dependence
CPT/HCPCS: 70470; 71270; 93880

== ENCOUNTER → 2021-04-11 | Outpatient (CLI) | payer BC ==
[~2021-04-11] MED LIST changes: -CATHETER FLUSH 10 ML SYR IV PRN; -HOLD METFORMIN - RECEIVED CONTRAST 20 ML VIAL IV SCH; -IOHEXOL 350 MG/ML 100 ML (OMNIPAQUE 350) VIAL IV ONE; -NS 100 ML (IVPB) BAG IV ONE
[2021-04-11 14:24] LABS: ALBUMIN 4.3 GM/DL (3.2-4.5); BILIRUBIN,TOTAL 0.3 MG/DL (0.1-1.0); CREATININE SERUM 0.99 MG/DL (0.60-1.30); POTASSIUM 4.2 MMOL/L (3.6-5.0); TOTAL PROTEIN 6.9 GM/DL (6.4-8.2)
== END ==
LOC: LAB FS 13:47
PROVIDERS: ATTEND Nurse Practitioner Adult Health
DX: R91.8 Other nonspecific abnormal finding of lung field (principal)
CPT/HCPCS: 36415; 80053

== ENCOUNTER → 2021-04-11 | Outpatient (CLI) | payer BC ==
[~2021-04-11] MED LIST changes: +CATHETER FLUSH 10 ML SYR IV PRN; +HOLD METFORMIN - RECEIVED CONTRAST 20 ML VIAL IV SCH; +IOHEXOL 350 MG/ML 100 ML (OMNIPAQUE 350) VIAL IV ONE; +NS 100 ML (IVPB) BAG IV ONE
--- NOTE | 2021-04-11 16:21 | Diagnostic Imaging Report ---
PROCEDURE: CT chest with contrast only. TECHNIQUE: Multiple contiguous axial images were obtained through the chest after administration of intravenous contrast. Auto Exposure Controls were utilized during the CT exam to meet ALARA standards for radiation dose reduction. INDICATION: Lung mass. COMPARISON: Study of 01/10/2014. FINDINGS: No lung mass or suspicious pulmonary nodule. No thoracic adenopathy. The aorta is patent, nonaneurysmal and nonacute. No evidence for central pulmonary embolus. No effusion or pneumothorax. The visualized upper abdomen is unremarkable. IMPRESSION: No evidence of lung mass, adenopathy or acute abnormality. Dictated by: Dictated on workstation # [id number]
== END ==
LOC: RAD FS 13:45
PROVIDERS: ATTEND Internal Medicine Hematology & Oncology
DX: R91.8 Other nonspecific abnormal finding of lung field (principal)
CPT/HCPCS: 71260

== ENCOUNTER 2021-04-17 14:45 | Outpatient (RCR) | payer BC ==
[~2021-04-17 14:45] MED LIST changes: -CATHETER FLUSH 10 ML SYR IV PRN; -HOLD METFORMIN - RECEIVED CONTRAST 20 ML VIAL IV SCH; -IOHEXOL 350 MG/ML 100 ML (OMNIPAQUE 350) VIAL IV ONE; -NS 100 ML (IVPB) BAG IV ONE
== END 2021-04-29 | disposition home or self-care (01) ==
LOC: ONC 14:45
PROVIDERS: ATTEND Internal Medicine Hematology & Oncology
DX: R91.8 Other nonspecific abnormal finding of lung field (principal); J44.9 Chronic obstructive pulmonary disease, unspecified; E66.9 Obesity, unspecified; Z72.0 Tobacco use
CPT/HCPCS: 99213

== ENCOUNTER 2021-06-10 05:39 | Outpatient (CLI) | payer BC ==
[~2021-06-10] VITALS: Ht 172.7 cm; Wt 85.3 kg
[2021-06-10] MEDS ORDERED: MECL-149 PO (14:55)
[2021-06-10] MEDS ORDERED: CITA20TA9 PO (14:55)
[2021-06-10] MEDS ORDERED: DIAZ2TAB2 PO (14:55)
[2021-06-10] MEDS ORDERED: DEXA6TAB PO (14:55)
[2021-06-10] MEDS ORDERED: BROM118S31 PO (14:55)
[2021-06-10] MEDS ORDERED: PANT40TA52 PO (14:55)
== END 2021-06-10 15:08 | disposition home or self-care (01) ==
LOC: PREOP 05:39
PROVIDERS: ATTEND Surgery
DX: Z01.818 Encounter for other preprocedural examination (principal)

== ENCOUNTER 2021-06-18 12:39 | Day surgery (SDC) | payer BC ==
[~2021-06-18] VITALS: Ht 172.7 cm; Wt 85.3 kg
[~2021-06-18 12:39] MED LIST changes: +BROM118S31 PO; +CITA20TA9 PO; +DEXA6TAB PO; +DIAZ2TAB2 PO; +MECL-149 PO; +PANT40TA52 PO
[2021-06-18] MEDS ORDERED: LACTATED RINGERS 1,000 ML IV ONE (12:42)
[2021-06-18] MEDS ORDERED: LACTATED RINGERS 1,000 ML IV STA (12:44)
[2021-06-18] MEDS ORDERED: HURRICAINE EXT TUBE (BENZOCAINE) XX PRN (12:45)
[2021-06-18 13:00] VITALS: BP 126/79
[2021-06-18] MEDS ORDERED: PROPOFOL INJECTION 50 ML IV ONE (13:38)
--- NOTE | 2021-06-18 14:14 | Discharge Inst-Simple/Standard ---
Discharge Inst-Standard Patient Instructions/Follow Up Plan of Care/Instructions/FU: 2 weeks Samia Activity as Tolerated: Yes Discharge Diet: Regular Diet (high fiber) LINDSEY LOMELI DO Jun 18, 2021 14:14
[2021-06-18 14:15] VITALS: BP 112/66
--- NOTE | 2021-06-18 14:15 | Anesthesia-General Post-Op ---
MAC Patient Condition Mental Status/LOC: Same as Preop Cardiovascular: Satisfactory Nausea/Vomiting: Absent Respiratory: Satisfactory Pain: Controlled Complications: Absent Post Op Complications Complications None Follow Up Care/Instructions Patient Instructions None needed. Anesthesiology Discharge Order Discharge Order Patient is doing well, no complaints, stable vital signs, no apparent adverse anesthesia problems. No complications reported per nursing. MAIN ROSS CRNA Jun 18, 2021 14:15
[2021-06-18 14:20] VITALS: BP 124/74
[2021-06-18 14:25] VITALS: BP 130/76
[2021-06-18 14:30] VITALS: BP 123/77
[2021-06-18 14:50] VITALS: BP 108/82
--- NOTE | 2021-06-18 18:50 | OPERATIVE REPORT ---
DATE OF SERVICE: 06/18/2021 PREOPERATIVE DIAGNOSES: Gastroesophageal reflux disease, history of polyps. 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 PROCEDURE: EGD with biopsies, colonoscopy with hot biopsy polypectomy x3. SURGEON: Lindsey Gracia DO ANESTHESIA: Per FINISH FILER. ESTIMATED BLOOD LOSS: None. COMPLICATIONS: None. INDICATIONS: The patient is a 61-year-old male with GERD and history of polyps. She understands risks and benefits of procedure and wished to proceed. Consent was signed in the chart. DESCRIPTION OF PROCEDURE: The patient was taken to the endoscopy suite, placed in left lateral recumbent position. Timeout was performed. Scope was inserted in mouth, down the esophagus, stomach and duodenum without difficulty. No polyps, masses or ulcerations in the duodenum. Scope was slowly retracted back into the stomach where it was further insufflated. No polyps, masses or ulcerations. Biopsy of the antrum was obtained. Scope was retroflexed noting a hiatal hernia, no other pathology. 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 Biopsy was obtained. Scope was slowly retracted back until completely removed. Digital rectal exam was performed. No palpable polyps, masses or ulcerations. Scope was inserted in the rectum, advanced all the way to cecum with minimal difficulty. Prep was adequate with irrigation and suction. Scope was then slowly retracted back. No polyps, masses or ulcerations within the cecum and ascending colon. In the transverse colon, a small polyp was present, which hot biopsy polypectomy was performed. Scope was continuously retracted back. No polyps, masses or ulcerations in the descending colon and sigmoid colon, some diverticulosis present in the sigmoid colon. Once in the rectum, 2 polyps present, which hot biopsy polypectomy was performed on these. Scope was to be retroflexed, but the rectum was narrow and difficult; therefore, multiple insertions and retractions were made noting no other pathology. Scope was then slowly retracted until completely removed. The patient tolerated procedure well without any complications. She was taken to recovery room in stable condition. RECOMMENDATIONS: Due to history of polyps and current polyps, would recommend repeat colonoscopy in 5 years. I would recommend high fiber diet due to diverticulosis. The patient will continue on Protonix and await biopsy results. May need a short interval EGD. Further recommendations pending. Job ID: [id number] DocumentID: [id number] Dictated Date: 06/18/2021 14:18:23 Fundraising Director Date: 06/18/2021 18:49:07 Dictated By: LINDSEY GRACIA DO
== END 2021-06-18 15:02 | disposition home or self-care (01) ==
LOC: ENDO 12:39
PROVIDERS: ATTEND Surgery
DX: Z12.11 Encounter for screening for malignant neoplasm of colon (principal); K63.5 Polyp of colon; K62.1 Rectal polyp; K57.30 Diverticulosis of large intestine without perforation or abscess without bleeding; K21.00 Gastro-esophageal reflux disease with esophagitis, without bleeding; K44.9 Diaphragmatic hernia without obstruction or gangrene; Z79.899 Other long term (current) drug therapy; F17.210 Nicotine dependence, cigarettes, uncomplicated; E66.9 Obesity, unspecified; Z68.28 Body mass index [BMI] 28.0-28.9, adult

== ENCOUNTER → 2021-09-23 | Outpatient (CLI) | payer BC ==
[~2021-09-23] MED LIST changes: +CATHETER FLUSH 10 ML SYR IV PRN; +HOLD METFORMIN - RECEIVED CONTRAST 20 ML VIAL IV SCH; +IOHEXOL 350 MG/ML 100 ML (OMNIPAQUE 350) VIAL IV ONE; +NS 100 ML (IVPB) BAG IV ONE
[2021-09-23 14:48] LABS: CREATININE SERUM 1.05 MG/DL (0.60-1.30); POTASSIUM 4.2 MMOL/L (3.6-5.0)
[2021-09-23 14:49] LABS: ALBUMIN 4.2 GM/DL (3.2-4.5); BILIRUBIN,TOTAL 0.2 MG/DL (0.1-1.0); TOTAL PROTEIN 6.7 GM/DL (6.4-8.2)
--- NOTE | 2021-09-23 16:42 | Diagnostic Imaging Report ---
PROCEDURE: CT chest with contrast only. TECHNIQUE: Multiple contiguous axial images were obtained through the chest after administration of intravenous contrast. Auto Exposure Controls were utilized during the CT exam to meet ALARA standards for radiation dose reduction. INDICATION: COPD COMPARISON: 04/11/2021 Irregular 1 cm nodule in the posterior aspect of the right upper lobe adjacent to the major fissure is not significantly changed and may represent benign lesion such as scar tissue. There is no evidence of significant pleural or pericardial fluid. No new pathologic pulmonary parenchymal abnormality is seen. There is continued dilatation of the esophagus. No pathologically enlarged adenopathy is seen. There is no significant pleural or pericardial fluid. No acute abnormality or adverse change is seen. IMPRESSION: Stable 1 cm nodule right upper lobe is likely benign etiology such as scarring. Otherwise no new abnormality is identified. Dictated by: Dictated on workstation # [id number]
== END ==
LOC: RAD FS 14:01
PROVIDERS: ATTEND Nurse Practitioner Family
DX: J44.9 Chronic obstructive pulmonary disease, unspecified (principal); R91.1 Solitary pulmonary nodule; R93.89 Abnormal findings on diagnostic imaging of other specified body structures
CPT/HCPCS: 36415; 71260; 80053; Q9967

== ENCOUNTER → 2021-10-08 | Outpatient (CLI) | payer BC ==
[~2021-10-08] MED LIST changes: -CATHETER FLUSH 10 ML SYR IV PRN; -HOLD METFORMIN - RECEIVED CONTRAST 20 ML VIAL IV SCH; -IOHEXOL 350 MG/ML 100 ML (OMNIPAQUE 350) VIAL IV ONE; -NS 100 ML (IVPB) BAG IV ONE; +RT-ALBUTEROL SULF 2.5 MG/3 ML PRE-MIX VIAL INH ONE
== END ==
LOC: RT 08:54
PROVIDERS: ATTEND Nurse Practitioner Family
DX: J44.9 Chronic obstructive pulmonary disease, unspecified (principal)
CPT/HCPCS: 94060; 94726; 94729

== ENCOUNTER → 2022-03-13 | Outpatient (CLI) | payer BC ==
[~2022-03-13] MED LIST changes: -RT-ALBUTEROL SULF 2.5 MG/3 ML PRE-MIX VIAL INH ONE
--- NOTE | 2022-03-13 09:34 | Diagnostic Imaging Report ---
INDICATION: Bilateral knee pain. Time of Exam: 8:08 AM 3 views of each knee were obtained. Joint spaces are well-maintained bilaterally. Articular surfaces are smooth. There is some mild patellofemoral degenerative change on the right. No fracture, dislocation or effusion is detected. IMPRESSION: Mild right-sided patellofemoral degenerative change. The study is otherwise unremarkable. Dictated by: Dictated on workstation # [id number]
== END ==
LOC: RAD FS 07:50
DX: M17.0 Bilateral primary osteoarthritis of knee (principal)

== ENCOUNTER → 2022-03-27 | Outpatient (CLI) | payer BC ==
--- NOTE | 2022-03-27 21:12 | Diagnostic Imaging Report ---
EXAMINATION: Magnetic resonance imaging of the right knee without intravenous contrast. DATE: March 27, 2022. COMPARISON: Knee radiographs March 13, 2022. INDICATION: 62-year-old male, right knee pain. Recent injury. TECHNIQUE: Multiplanar, multisequence non contrast enhanced MR imaging was accomplished. FINDINGS: MENISCI: There is signal in the posterior horn of the medial meniscus not meeting strict MRI criteria for diagnosis of tear. There is a complex tear involving the body and posterior horn of the lateral meniscus with associated volume loss of the lateral meniscus. Overall, there is an estimated 33-50% volume loss of the lateral meniscus. LIGAMENTS AND TENDONS: The anterior and posterior cruciate ligaments are intact. The medial collateral ligament is intact. The iliotibial band, mid third lateral capsular ligament, fibular collateral ligament, biceps femoris tendon and conjoined tendon are intact. The quadriceps tendon and patella ligament are intact. JOINT: There is a full-thickness cartilage fissure of the posterior weightbearing portion of the lateral femoral condyle and minimal underlying subchondral edema. There is full-thickness cartilage loss involving the posterior aspect of the lateral tibial plateau measuring approximately 12 x 8 mm in extent. There is overlying additional mild thinning of the cartilage of the lateral femoral condyle. The medial and patellofemoral compartment cartilage is without identified defect. There is no knee joint effusion, prominent synovitis, or intra-articular body. BONE: There is very mild degenerative related edema in the lateral femoral condyle, as mentioned above. There is no acute fracture, bone contusion or evidence of osteonecrosis. BURSAE AND SOFT TISSUES: There is a very small Wylie's cyst. There is low-level edema in the soleus muscle and popliteus muscle as well as tibialis anterior, extensor digitorum longus and peroneus longus. IMPRESSION: 1. Complex tear of the body and posterior horn of the lateral meniscus with associated volume loss of the lateral meniscus. This tear is of unclear exact age. 2. No identified tear of the medial meniscus. 3. Intact anterior and posterior cruciate ligaments. Additional ligaments and tendons are intact. 4. Moderate lateral compartment osteoarthritis, as described above. No knee joint effusion. 5. No acute fracture or bone contusion. 6. Low level edema in the soleus, popliteus, tibialis anterior, extensor digitorum longus and peroneus longus muscles which could potentially reflect early denervation related signal changes without current fatty muscle atrophy. Low-grade muscle strains or nonspecific myositis are also differential considerations. Dictated by: Dictated on workstation # [id number]
== END ==
LOC: RAD 13:29
PROVIDERS: ATTEND Nurse Practitioner Family
DX: S83.281A Other tear of lateral meniscus, current injury, right knee, initial encounter (principal); X58.XXXA Exposure to other specified factors, initial encounter; M17.11 Unilateral primary osteoarthritis, right knee
CPT/HCPCS: 73721

== ENCOUNTER 2022-05-07 05:39 | Outpatient (CLI) | payer BC ==
[~2022-05-07] VITALS: Ht 172.7 cm; Wt 82.7 kg
== END 2022-05-07 16:18 ==
LOC: PREOP 05:39
PROVIDERS: ATTEND Orthopaedic Surgery
DX: Z01.818 Encounter for other preprocedural examination (principal)

== ENCOUNTER 2022-05-14 07:44 | Day surgery (SDC) | payer BC ==
--- NOTE | 2022-05-07 06:43 | HISTORY AND PHYSICAL ---
DATE OF SERVICE: 05/14/2022 This will be for outpatient surgery on 05/14/2022 for right knee arthroscopy. HISTORY OF PRESENT ILLNESS: The patient is a 62-year-old gentleman with longstanding right knee pain, catching, locking and swelling. He has undergone arthroscopies in the past. 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 Due to mechanical symptoms and failure to improve with conservative measures, the patient elected to proceed with surgical intervention. The patient does not desire total knee arthroplasty. REVIEW OF SYSTEMS: No chest pain, no shortness of breath. No dysuria. PAST MEDICAL HISTORY: COPD. PAST SURGICAL HISTORY: Herniorrhaphy, knee arthroscopies, angiogram. FAMILY HISTORY: COPD, diabetes. PRIMARY CARE PROVIDER: Dr. Matias. ALLERGIES: CODEINE AND CEPHALOSPORINS. SOCIAL HISTORY: The patient denies alcohol and tobacco use. PHYSICAL EXAMINATION: GENERAL: The patient is well-developed, well-nourished, in no acute distress. HEENT: Normocephalic, atraumatic. Pupils are equal, round and reactive to light. Oropharynx is clear. NECK: Supple. No lymphadenopathy. LUNGS: Clear to auscultation bilaterally. HEART: Regular rate and rhythm. ABDOMEN: Soft, nontender, nondistended. EXTREMITIES: The right knee demonstrates a moderate effusion. He is tender along his medial and lateral joint lines. He has pain medially and laterally with Farrah's. No varus or valgus laxity. Negative anterior and posterior drawer. Active range of motion 0/2/130. 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 PLAN: Right knee arthroscopy with partial meniscectomies and chondroplasty. The risks, benefits, options, ramifications and recovery were discussed at length with the patient. He understands and wishes to proceed. Job ID: [id number] DocumentID: [id number] Dictated Date: 04/28/2022 16:00:21 Network Technical Analyst Date: 04/28/2022 20:46:00 Dictated By: YOGESH CONNOR MD
[~2022-05-14] VITALS: Ht 172.7 cm; Wt 82.7 kg
[2022-05-14] VITALS (12 sets, daily range): BP systolic 116–145; BP diastolic 63–91
[~2022-05-14 07:44] MED LIST changes: +HYDROcodone/APAP 7.5 MG/325 MG (LORTAB, LORCET PLUS) TABLET PO PRN
[2022-05-14] MEDS ORDERED: BUPIVACAINE 0.25% 30 ML (SENSORCAINE) VIAL ONE (08:04)
[2022-05-14] MEDS ORDERED: morphine PF (DURAMORPH) 10 MG/10 ML AMP ONE (08:04)
[2022-05-14] MEDS ORDERED: LACTATED RINGERS 1,000 ML IV PRN (08:15)
[2022-05-14] MEDS ORDERED: ceFAZolin INJECTION 2,000 MG in NS (IVPB) 50 ML IV ONE (08:15)
--- NOTE | 2022-05-14 09:26 | Progress Note-Pre Operative ---
Pre-Operative Progress Note Date of Available H&P: May 07, 2022 Date H&P Reviewed: May 14, 2022 Time H&P Reviewed: 09:15 Changes from last HP none Pre-Operative Diagnosis: right knee medial meniscus tear and chondromalacia YOGESH CONNOR MD May 14, 2022 09:26
--- NOTE | 2022-05-14 09:28 | Progress Note-Post Operative ---
Post-Operative Progess Note Surgeon (s)/Analog Device Designer (s) Surgeon YOGESH CONNOR MD Analog Device Designer: Moises Trevino Pre-Operative Diagnosis right knee medial meniscus tear and chondromalacia Post-Operative Diagnosis right knee medial and lateral meniscus tear and chondromalacia of the patella, trochlea, medial and lateral femoral condyles, lateral tibial plateau Procedure & Operative Findings Date of Procedure 05/14/22 Procedure Performed/Findings right knee arthroscopic partial medial meniscectomy and chondroplasty of the patella, trochlea, medial and lateral femoral condyles, lateral tibial plateau Anesthesia Type GETA Estimated Blood Loss Estimated blood loss (mL): minimal Specimens/Packing Specimens Removed none Packing: none YOGESH CONNOR MD May 14, 2022 09:28
[2022-05-14] MEDS ORDERED: BUPIVACAINE 0.25% 30 ML (SENSORCAINE) VIAL INJ ONE (09:51)
[2022-05-14] MEDS ORDERED: morphine PF (DURAMORPH) 10 MG/10 ML AMP INJ ONE (09:53)
--- NOTE | 2022-05-14 10:06 | Anesthesia-General Post-Op ---
General Patient Condition Mental Status/LOC: Same as Preop Cardiovascular: Satisfactory Nausea/Vomiting: Absent Respiratory: Satisfactory Pain: Controlled Complications: Absent Post Op Complications Complications None Follow Up Care/Instructions Patient Instructions None needed. Anesthesia/Patient Condition Patient Condition Patient is doing well, no complaints, stable vital signs, no apparent adverse anesthesia problems. No complications reported per nursing. ANTONIO CESPEDES CRNA May 14, 2022 10:06
[2022-05-14] MEDS ORDERED: MEPERIDINE (DEMEROL) INJ 50 MG/ML IVP ONE (10:15)
[2022-05-14] MEDS ORDERED: fentaNYL INJ 100 MCG/2 ML AMP IVP ONE (10:15)
--- NOTE | 2022-05-14 14:21 | Physical Therapy Ortho Eval ---
PT Orthopedic Evaluation Type of Surgery Knee Scope Prior Level of Function Current Living Status: Spouse Locomotion (Upon Admit): Independent Established Durable Medical Eq: Crutches Subjective Subjective Patient lying supine in bed upon PT arrival. Patient refuses gait training as he states he has crutches at home and has used them before. Agreeable to HEP Entry Into Home: Level Entry Steps Into Home: 0 Motor Control Motor Control: Motor Control WNL ROM ROM: WFL, except focal deficit Strength Strength: Gen Weak,No Focal Deficit Transfer SCALE: Activities may be completed with or without assistive devices. 0-Dxifgjjfze-psclyhj completes the activity by him/herself with no assistance from a helper. 5-Set-up or Clean-up Assistance-helper sets up or cleans up; patient completes activity. Biola assists only prior to or following the activity. 4-Supervision or Touching Assistance-helper provides verbal cues and/or touching/steadying and/or contact guard assistance as patient completes activity. Assistance may be provided throughout the activity or intermittently. 3-Partial/Moderate Assistance-helper does LESS THAN HALF the effort. Biola lifts, holds or supports trunk or limbs, but provides less than half the effort. 2-Substantial/Maximal Assistance-helper does MORE THAN HALF the effort. Biola lifts or holds trunk or limbs and provides more than half the effort. 0-Ltskhbesd-lntsow does ALL the effort. Patient does none of the effort to complete the activity. Or, the assistance of 2 or more helpers is required for the patient to complete the activity. If activity was not attempted, code reason: 7-Patient Refused. 9-Not Applicable-not attempted and the patient did not perform the activity before the current illness, exacerbation or injury. 10-Not Attempted due to Environmental Limitations-(lack of equipment, weather restraints, etc.). 88-Not Attempted due to Medical Conditions or Safety Concerns. Transfers (B, C, W/C) (QC): 4 Gait Right Lower Extremity: Right Weight Bearing Status RLE: Weight Bearing/Tolerated Left Lower Extremity: Left Weight Bearing Status LLE: Full Weight Bearing Summary/Comments Gait N/A per patient request Treatment Rendered Treatment: Therapeutic Exercises Exercise Instruction: Quad Sets, Straight Leg Raise, Heel Slides Assessment/Goals Goal Time Frame: 1 Visit Understands HEP: Yes Plan Treatment Plan: Discharge Time Time In: 1155 Time Out: 1205 Total Billed Treatment Time: 10 Billed Treatment Time Visit, EX ALICIA DE PAZ PT May 14, 2022 14:21
--- NOTE | 2022-05-14 16:08 | OPERATIVE REPORT ---
DATE OF SERVICE: 05/14/2022 PREOPERATIVE DIAGNOSES: 1. Right knee medial meniscus tear. 2. Right knee chondromalacia of the medial femoral condyle. 3. Right knee chondromalacia patella. POSTOPERATIVE DIAGNOSES: 1. Right knee medial meniscus tear. 2. Right knee lateral meniscus tear. 3. Right knee chondromalacia of the medial femoral condyle. 4. Right knee chondromalacia of the lateral femoral condyle. 5. Right knee chondromalacia of the lateral tibial plateau. 6. Right knee chondromalacia of the patella. 7. Right knee chondromalacia of the trochlea. PROCEDURES: 1. Right knee arthroscopic partial medial meniscectomy. 2. Right knee arthroscopic partial lateral meniscectomy. 3. Right knee arthroscopic chondroplasty of the medial femoral condyle. 4. Right knee arthroscopic chondroplasty of lateral femoral condyle. 5. Right knee arthroscopic chondroplasty of the lateral tibial plateau. 6. Right knee arthroscopic chondroplasty of the patella. 7. Right knee arthroscopic chondroplasty of the trochlea. SURGEON: Jimbo Connor MD [place] SMOOTHER: Moises Trevino, who assisted throughout the procedure and closed the incisions. ANESTHESIA: General endotracheal by Moises Casas CRNA. ESTIMATED BLOOD LOSS: Minimal. DRAINS: None. COMPLICATIONS: None. POSTOPERATIVE PLANS: Routine arthroscopy protocol. The patient was transferred to the recovery room awake and in stable condition. STATEMENT OF MEDICAL NECESSITY: The patient is a 62-year-old gentleman with right knee pain, catching, locking and swelling. He is tender along his medial and lateral joint lines. He had a complaint of mechanical type symptoms. The patient had known osteoarthritis of his knee and he understood that an arthroscopy could help with his mechanical symptoms, but would not alleviate his arthritic symptoms. Due to functional impairment and failure to improve with conservative measures, the patient elected to proceed with surgical intervention. Examination under anesthesia revealed range of motion of 0/0/135 with negative César, negative anterior and posterior drawer. No varus or valgus laxity, negative pivot shift. ARTHROSCOPIC FINDINGS: The patella demonstrated grade IV chondral loss inferiorly in a 10 x 10 area with surrounding grade 3 chondral flaps at the periphery. The trochlea demonstrated grade IV chondral flaps superiorly in an 8 x 8 area. The medial and lateral gutters were clear. The ACL and PCL were intact. The lateral compartment demonstrated a complex tear of the posterior horn and body of the lateral meniscus involving approximately one-third of the posterior horn and body. There was grade 4 chondral loss in a 5 x 10 area posteriorly on the tibial plateau with surrounding grade 3 chondral flaps at the periphery of the lateral femoral condyle demonstrated grade 3 chondral flaps posteriorly in a 10 x 10 area. The medial compartment demonstrated a degenerative tear of the posterior horn of the medial meniscus involving approximately one-third of the posterior horn. In addition, there were grade 2 chondral flaps of the central portion of the medial femoral condyle in an 8 x 8 area. DESCRIPTION OF PROCEDURE: After risks and benefits of the procedure were discussed and questions were answered and informed consent was signed and placed on the chart, the operative site was confirmed in the preoperative holding area initialed by surgeon. The patient was then transported to the operating room and after adequate levels of general endotracheal anesthetic were obtained, timeout was called, confirming the operative site. Examination under anesthesia was performed with the above findings noted. The right lower extremity was prepped and draped in the usual sterile fashion. Knee joint was injected with 60 mL fluid and standard inferolateral portal was placed. Under direct visualization inferior medial portal was created. The menisci and cruciates carefully probed with above findings noted. The unstable chondral flaps on the patella and trochlea were debrided with a shaver back to a stable edge. Scope was then redirected into the medial compartment and subchondral flaps of the medial femoral condyle were debrided with a shaver back to a stable edge and the posterior horn of the medial meniscus was debrided with a biter back to a stable edge. It was carefully probed with no further tearing or instability noted. The scope was redirected into the lateral compartment and unstable chondral flaps in lateral femoral condyle and lateral tibial plateau were debrided with a shaver back to a stable edge and posterior horn of the lateral meniscus and body were debrided with a shaver and a biter back to a stable edge. This was carefully probed with no further tearing or instability noted. The knee was copiously irrigated. The portal sites were closed with 4-0 nylon in septic fashion. Knee was injected with Duramorph. The port sites were infiltrated with plain Marcaine. A soft dressing was applied. The patient was transferred to the recovery room awake and stable condition. Job ID: [id number] DocumentID: [id number] Dictated Date: 05/14/2022 10:06:01 Greenhouse Technician Date: 05/14/2022 16:05:00 Dictated By: JIMBO CONNOR MD
== END 2022-05-14 12:12 | disposition home or self-care (01) ==
LOC: SDC 07:44
PROVIDERS: ATTEND Orthopaedic Surgery
DX: S83.271A Complex tear of lateral meniscus, current injury, right knee, initial encounter (principal); S83.241A Other tear of medial meniscus, current injury, right knee, initial encounter; M22.41 Chondromalacia patellae, right knee; F17.210 Nicotine dependence, cigarettes, uncomplicated; X58.XXXA Exposure to other specified factors, initial encounter
CPT/HCPCS: 87081

== ENCOUNTER → 2022-08-28 | Outpatient (CLI) | payer BC ==
[~2022-08-28] MED LIST changes: +CATHETER FLUSH 10 ML SYR IV PRN; +HOLD METFORMIN - RECEIVED CONTRAST 20 ML VIAL IV SCH; -HYDROcodone/APAP 7.5 MG/325 MG (LORTAB, LORCET PLUS) TABLET PO PRN; +IOHEXOL 350 MG/ML 100 ML (OMNIPAQUE 350) VIAL IV ONE; +NS 100 ML (IVPB) BAG IV ONE
[2022-08-28 12:43] LABS: CREATININE SERUM 1.04 MG/DL (0.60-1.30)
--- NOTE | 2022-08-28 15:27 | Diagnostic Imaging Report ---
PROCEDURE: CT chest with contrast only. TECHNIQUE: Multiple contiguous axial images were obtained through the chest after administration of intravenous contrast. Auto Exposure Controls were utilized during the CT exam to meet ALARA standards for radiation dose reduction. INDICATION: Lower respiratory infection Comparison made to study from 09/23/2021. There are some small patchy infiltrates in both lungs more prevalent on the left. There is a 4 mm pulmonary nodule in the right upper lobe along the fissure posteriorly that appears stable. There are no effusions or pneumothoraces. There is no hilar or mediastinal lymphadenopathy. IMPRESSION: Several small groundglass nodular opacities in the left lung ranging in size from 10 mm to 5 mm. There are approximately 8 opacities. This likely is inflammatory. Would recommend followup study within 6 months however. Dictated by: Dictated on workstation # [id number]
== END ==
LOC: RAD 12:06
PROVIDERS: ATTEND Family Medicine
DX: J44.9 Chronic obstructive pulmonary disease, unspecified (principal); R91.1 Solitary pulmonary nodule; J20.9 Acute bronchitis, unspecified; Q28.2 Arteriovenous malformation of cerebral vessels; H81.10 Benign paroxysmal vertigo, unspecified ear; K21.9 Gastro-esophageal reflux disease without esophagitis; G47.00 Insomnia, unspecified; M54.50 Low back pain, unspecified; F32.0 Major depressive disorder, single episode, mild
CPT/HCPCS: 36415; 71260; 82565; 84520

== ENCOUNTER → 2022-11-17 | Outpatient (CLI) | payer BC ==
[~2022-11-17] MED LIST changes: -CATHETER FLUSH 10 ML SYR IV PRN; -HOLD METFORMIN - RECEIVED CONTRAST 20 ML VIAL IV SCH; -IOHEXOL 350 MG/ML 100 ML (OMNIPAQUE 350) VIAL IV ONE; -NS 100 ML (IVPB) BAG IV ONE
--- NOTE | 2022-11-17 20:06 | Diagnostic Imaging Report ---
CT CHEST WO TECHNIQUE: Multiple contiguous axial images were obtained through the chest without the use of intravenous contrast. All CT scans use one or more of the following dose optimizing techniques: automated exposure control, MA and/or KvP adjustment based on a patient size and exam type, or iterative reconstruction. INDICATION: Cough. Follow-up abnormal CT chest. COMPARISON: CT chest of 08/28/2022 FINDINGS: Lungs and airway: No abnormality in the trachea. Multiple micronodules within the right upper lobe and superior segment of the right lower lobe persist. The larger nodular consolidations in this region have resolved. Pleura: No pleural effusion or pneumothorax. Heart and mediastinum: No subclavicular or axillary lymphadenopathy. No mediastinal or hilar lymphadenopathy. Heart is normal in size without pericardial effusion. Normal caliber thoracic aorta. The esophagus is moderately distended with fluid and air and has a patulous appearance throughout its mid aspect. Upper abdomen: No concerning abnormality has developed in the upper abdomen. Nonobstructing 2 mm left renal stone. Incompletely imaged left renal cyst. Musculoskeletal: No worrisome focal osseous lesion. IMPRESSION: 1. Esophagus is fluid-filled and mildly distended with a somewhat patulous appearance. While nonspecific, this can be seen in the setting of connective tissue disorder, such as scleroderma. In addition, chronic inflammation in the distal esophagus could cause mild stricture in this region. 2. Some micronodules have increased in the right upper lung and may be sequelae of aspiration of esophageal pathology. Dictated on workstation # [id number]
== END ==
LOC: RAD 13:40
PROVIDERS: ATTEND Internal Medicine
DX: R91.1 Solitary pulmonary nodule (principal); R05.9 Cough, unspecified; R91.8 Other nonspecific abnormal finding of lung field
CPT/HCPCS: 71250

== ENCOUNTER 2023-01-24 07:32 | Emergency (ER) | payer BC ==
[~2023-01-24] VITALS: Ht 170 cm; Wt 82.7 kg
[~2023-01-24 07:32] MED LIST changes: -MECL-149 PO; +MECL-291 PO
[2023-01-24 07:40] VITALS: BP 160/93
--- NOTE | 2023-01-24 07:41 | ED EENT ---
History of Present Illness General Stated Complaint: LT EYE VISION PROBLEM History of Present Illness Date Seen by Provider: Jan 24, 2023 Time Seen by Provider: 07:40 Initial Comments 63-year-old male presents with left eye pain. He reports that yesterday morning he thinks he got something in his eye. That he went to clinic yesterday and evaluated it and started him on eyedrops for his corneal abrasion. Presents today because he is continue to have some pain. He is concerned that there sterile may be something in it. Allergies and Home Medications Allergies Coded Allergies: codeine (Verified Adverse Reaction, Unknown, NAUSEA, 05/14/22) oxycodone (Verified Adverse Reaction, Unknown, NAUSEA, 05/14/22) Patient Home Medication List Home Medication List Reviewed: Yes Albuterol Sulfate (Ventolin Hfa) 1 Puff Puff, 2 PUFF IH QID PRN for SHORTNESS OF BREATH, (Reported) Entered as Reported by: LAYLA DSOUZA on 12/16/17 1147 Budesonide/Glycopyr/Formoterol (Breztri Aerosphere Inhaler) 10.7 Gm Hfa.aer.ad, 10.7 GM IH BID, (Reported) Entered as Reported by: NIRAV RAMIREZ on 07/18/20 09 Zolpidem Tartrate (Ambien) 10 Mg Tablet, 10 MG PO HS, (Reported) Entered as Reported by: NIRAV RAMIREZ on 07/18/20937 Review of Systems Review of Systems Constitutional: see HPI Eyes: See HPI Ears: No Symptoms Reported Nose: no symptoms reported Throat: no symptoms reported Respiratory: no symptoms reported Cardiovascular: no symptoms reported Past Yivkkde-Zfrlcd-Ppolpi Hx Immunizations Up To Date First/Initial COVID19 Vaccinat: MAY 2020 Second COVID19 Vaccination Enrique: JUNE 2020 Third COVID19 Vaccination Date: NO Seasonal Allergies Seasonal Allergies: No Past Medical History Surgeries: Yes (ing hernia, bilat knee scope) Orthopedic Respiratory: Yes (lung nodule) Asthma, COPD Currently Using CPAP: No Currently Using BIPAP: No Cardiac: No Neurological: No Genitourinary: No Gastrointestinal: Yes (INGUINAL HERNIA) Gastroesophageal Reflux Musculoskeletal: Yes Chronic Back Pain Endocrine: No HEENT: No Cancer: No Psychosocial: No Integumentary: No Blood Disorders: No Physical Exam Vital Signs Vital Signs - First Documented 01/24/23 07:40 Temp 36.5 Pulse 72 Resp 18 B/P (MAP) 160/93 (115) Pulse Ox 98 O2 Delivery Room Air Height, Weight, BMI Height: 5'8.00" Weight: 200lbs. 0.0oz. [id number]; 27.72 BMI Method: General Appearance: mild distress Eyes: left eye corneal abrasion, left eye lid inflammation Cardiovascular: normal peripheral pulses, regular rate, rhythm Respiratory: no respiratory distress, no accessory muscle use Neurologic/Psychiatric: alert, normal mood/affect, oriented x 3 Skin: normal color Progress/Results/Core Measures Results/Orders My Orders Orders - GEOVANY BRIZUELA DO Tetracaine 0.5% Ophth Janine Sdv (Tetracai (01/24/23 07:45) Tetracaine 0.5% Ophth Janine Sdv (Tetracai (01/24/23 07:42) Fluorescein Ophthalmic Strips (Fluoresce (01/24/23 07:43) Vital Signs/I&O 01/24/23 07:40 Temp 36.5 Pulse 72 Resp 18 B/P (MAP) 160/93 (115) Pulse Ox 98 O2 Delivery Room Air Progress Progress Note : Progress Note Fluorescein exam shows a large corneal abrasion but no obvious foreign body. Patient's lid was inverted and shows no foreign body. Patient is currently already on antibiotic drops. I did recommend he follows up with his o ptometrist. He can use cooled to your replacement gel to help with the discomfort along with Tylenol and ibuprofen. He was stable and discharged home. Departure Impression Primary Impression: Corneal abrasion Qualified Codes: S05.02XA - Injury of conjunctiva and corneal abrasion without foreign body, left eye, initial encounter Disposition: HOME, SELF-CARE Condition: Stable Departure-Patient Inst. Referrals: JACQUE DICKINSON DO (PCP/Family) Primary Care Physician Patient Instructions: Corneal Abrasion (DC) Add. Discharge Instructions: Please follow-up with the eye doctor and 1 to 3 days for recheck and continued outpatient management. May use a cool ice pack. May also try cooled tear replacement gel to help with the discomfort. Please take antibiotics drops as prescribed GEOVANY BRIZUELA DO Jan 24, 2023 07:41
[2023-01-24] MEDS ORDERED: TETRACAINE 0.5% OPHTH SOLN 4 ML BTL (SINGLE DOSE ONLY) ONE (07:42)
[2023-01-24] MEDS ORDERED: FLUORESCEIN 1 MG OPHTHALMIC STRIPS ONE (07:43)
[2023-01-24] MEDS ORDERED: TETRACAINE 0.5% OPHTH SOLN 4 ML BTL (SINGLE DOSE ONLY) OP ONE (07:45)
== END 2023-01-24 08:01 | disposition home or self-care (01) ==
LOC: EDUNIT# 07:32 → ER FS 07:34
DX: S05.02XA Injury of conjunctiva and corneal abrasion without foreign body, left eye, initial encounter (principal); X58.XXXA Exposure to other specified factors, initial encounter
CPT/HCPCS: 99281